=== PATIENT | female | born 2000 | race Caucasian/White ===

== ENCOUNTER 2022-10-04 21:30 | Emergency (ER) | payer OTHER, SELFPAY ==
[2022-10-04 21:31] VITALS: BP 119/87; PULSE 81; RESP 18; TEMP 36.4; O2SAT 97
--- NOTE | 2022-10-04 21:50 | RAD_ITS ---
INDICATION: INJURY EXAMINATION/TECHNIQUE: X-RAY - LEFT XR Tibia/Fibula 2 Views 2 VIEWS COMPARISON: FINDINGS: BONES: No fracture demonstrated. Suboptimal assessment of the distal fibula at the lateral malleolus due to the positioning. JOINTS: No dislocation. SOFT TISSUES: Unremarkable. RAD/Tibia & Fibula 2 Views IMPRESSION: No evidence of fracture. Suboptimal assessment of the ankle/lateral malleolus. If symptoms pertain to the ankle, consider dedicated ankle series. Electronically Signed: Yisel Krishnan MD at 22:29 EDT ,
--- NOTE | 2022-10-04 23:32 | ED.VIS.LOWEX ---
HPI History of Present Illness Chief Complaint: Lower Extremity Injury Informant: patient Narrative Narrative: Healthy 22-year-old female was playing softball and slid into a base, and in doing so she felt her ankle twist and felt a pop. Since then she has been having pain with bearing weight but she has been able, she has more pain when she dorsiflexes the foot but not when she plantar flexes, and the pain is mostly just above the ankle laterally, and also some posteriorly to both sides of the Achilles. No other injuries. No knee pain. She took ibuprofen prior to coming here and it is feeling better now. PFSH PFSH Medical History no medical history no medical history Home Medications NK 10/04/22 [History Last Taken Unknown] Allergy/AdvReac Type Severity Reaction Status Date / Time No Known Allergies Allergy Verified 10/04/22 23:35 Surgical History Hx of tonsillectomy Social History Smoking Status: Never smoker alcohol intake: never ROS ROS ED Constitutional Constitutional ED: Denies chills or fever(s) Musculoskeletal Musculoskeletal: Reports extremity pain; Denies neck pain Integumentary Denies Abrasions, rash or wounds Neurologic Neurologic: Denies paresthesias or weakness EXAM Physical Exam Const Vital Signs: 10/04/22 21:31 Temperature 97.6 F L Temperature Source Temporal Pulse Rate 81 Respiratory Rate 18 Blood Pressure 119/87 H Blood Pressure Mean 97 Pulse Ox 97 Oxygen Delivery Method Room Air Positive well nourished and well developed General Appearance ED: well developed and NAD Neck full ROM and supple Back/Spine normal ROM and normal to inspection Extremity full ROM Extremity Narrative: Mild swelling lateral malleolus left ankle, no bony tenderness throughout the ankle, foot, knee, tib-fib. Full range of motion of the knee without any pain, no pain with stressing the ligaments which are intact. A little pain when I forcibly radha the left foot but not necessarily with inversion. Neurovascular intact distally. Able to bear weight both lower extremities, without any significant discomfort. Neuro oriented x3, no focal motor deficits and no sensory deficits noted Sensorium / Orientation: alert Psych mental status grossly normal and thought process normal Skin no wounds Rashes: no rashes MDM MDM MDM Narrative Medical decision making narrative: Nurses ordered a left tibia-fibula x-ray via protocol prior to my evaluation, 2 views interpreted by myself negative for any acute fracture, radiology in agreement I reviewed their interpretation. I ordered a dedicated ankle series, I am at a relatively low suspicion for an acute fracture, her Achilles clinically is intact, but I wanted to evaluate the posterior malleolus of the tibia where she is having some pain, as well as get a mortise view. Patient was initially agreeable but then she refused and decided against it, she was okay with an Del wrap we discussed that possibility and an Aircast, and she is okay with going home. Radiography Diagnostic Testing: Clinical Impression(s) from Imaging Studies Tibia/Fibula X-Ray 10/04/22 21:50 IMPRESSION: No evidence of fracture. Suboptimal assessment of the ankle/lateral malleolus. If symptoms pertain to the ankle, consider dedicated ankle series. Electronically Signed: Yisel Krishnan MD at 22:29 EDT Reading Location ID and State: [facility] / [place] Tel , Service support , Discharge Plan Triage Chief Complaint: Lower Extremity Injury ED Provider: Rene Jean Dx/Rx/DC Orders Clinical Impression: Left ankle sprain Instructions: ED Ankle Sprain (Adult) Prescriptions: No Action amoxicillin-pot clavulanate 875-125 mg tablet 1 tab PO Q12H Qty: 14 0RF Primary Care Provider: Peter Lopez Referrals: Peter Lopez MD [Primary Care Provider] - 10-14 Days if not better Activity Restrictions/Additional Instructions: Continue to use ibuprofen as needed for pain, also ice pack when resting to the affected area may help. Disposition Disposition: Home, Self Care
[2022-10-04 23:47] VITALS: RESP 17
== END 2022-10-04 23:48 | disposition home or self-care (01) ==
PROVIDERS: Emergency Provider Emergency Medicine; PCP Family Medicine; Visit Provider Emergency Medicine
DX: S93.402A Sprain of unspecified ligament of left ankle, initial encounter (principal); Y93.64 Activity, baseball
CPT/HCPCS: 73590; 99282